=== PATIENT | male | born 1950 | race Caucasian/White ===

== ENCOUNTER 2020-04-27 15:09 | Inpatient (IN) | payer MEDICARE ==
[~2020-04-27] VITALS: Ht 167.6 cm; Wt 63.5 kg
[2020-04-27] MEDS ORDERED: CLONIDINE HCL 0.2 MG TABLET PO ONE (15:30)
[2020-04-27] MEDS ORDERED: AMLO-212 PO (15:44)
[2020-04-27] MEDS ORDERED: CLONIDINE HCL 0.2 MG TABLET ONE (15:59)
--- NOTE | 2020-04-27 16:03 | NUR ---
PT IS INROO #2B. DR CORONA EVALUATED THE PT. NO S/S OF ACUTE DISTARESS AT THIS TIME. PT IS UNDER DIRECT OBSERVATION OF CARSON BOWERS.
--- NOTE | 2020-04-27 17:39 | NUR ---
REPORT WAS GIVEN TO RN M/S. PT WAS TRANSFERED TO ROOM #325.
--- NOTE | 2020-04-27 18:10 | NUR ---
Patient was transported from ER to floor on a gurney. Report received from Steven. Patient is stable, with no sign of distress noted. Patient denies any SI. Belongings list completed. Patient is on isolation for Scabies. Initial vitals taken. Patient has a 1:1 sitter. Safety precautions are in place to promote patient safety. Will endorse to the oncoming nurse.
[2020-04-27 18:30] VITALS: BP 98/58
[2020-04-27] MEDS ORDERED: MAGNESIUM HYDROXIDE 30 ML LIQUID UDC PO PRN (18:45)
[2020-04-27] MEDS ORDERED: ACETAMINOPHEN 325 MG TABLET PO PRN (18:45)
[2020-04-27] MEDS ORDERED: LORAZEPAM 0.5 MG TABLET PO PRN (18:45)
[2020-04-27] MEDS ORDERED: TEMAZEPAM 7.5 MG CAPSULE PO PRN (18:45)
[2020-04-27] MEDS ORDERED: MAG HYDROX/AL HYDROX/SIMETH 30 ML LIQUID UDC PO PRN (18:45)
[2020-04-27 20:00] VITALS: BP 89/49
[2020-04-27] MEDS ORDERED: PERMETHRIN 5% CREAM 60 GM TUBE TP ONE (22:00)
--- NOTE | 2020-04-27 22:11 | NUR ---
Patient alert and oriented x3.On RA in no respiratory distress noted. Unkempt ,depressed, coherent and suicidal.Stated he's homeless and has nothing to live for.Patient has a 1:1 sitter.Patient on contact isolation for scabies.Per patient he received the first tx of elimite for scabies at [facility].Applied 2nd tx of elimite cream from head to toe.Patient compliant and Instructed to wash off the cream after 8-14 hours by showering.
[2020-04-28 04:00] VITALS: BP 129/79
--- NOTE | 2020-04-28 06:37 | NUR ---
Patient slept well through out the shift, 7 hrs slept.No acute distress noted.
--- NOTE | 2020-04-28 07:30 | NUR ---
Received patient resting in bed awake, alert and oriented times 4. No sign of distress noted. Patient denies any SI or KOLB. Patient is on isolation for scabies. Patient also has a 1:1 sitter. Safety precautions are in place. Will continue to monitor.
[2020-04-28 08:17] VITALS: BP 141/72
[2020-04-28] MEDS: AMLODIPINE 5 MG TABLET PO SCH (08:35)
[2020-04-28] MEDS ORDERED: LORAZEPAM 0.5 MG TABLET PO PRN (10:45)
[2020-04-28] MEDS: THIAMINE HCL 100 MG TABLET PO SCH (11:03)
[2020-04-28] MEDS: MULTIVITAMINS,THERAPEUTIC TABLET PO SCH (11:03)
[2020-04-28] MEDS: FLUOXETINE HCL 20 MG CAPSULE PO SCH (17:01)
--- NOTE | 2020-04-28 18:23 | NUR ---
Patient left resting in bed. No sign of distress noted. All medications given as ordered. Patient still on isolation. Patient has a 1:1 sitter. Patient reports no SI and no KOLB. Patient reports being depressed. All safety precautions are in place. Will endorse to oncoming nurse.
[2020-04-28 19:26] VITALS: BP 146/80
[2020-04-28] MEDS: QUETIAPINE FUMARATE 25 MG TABLET PO SCH (20:51)
--- NOTE | 2020-04-29 06:33 | NUR ---
Patient slept 5.15 hrs.Denies SI/HI.No s/s of acute distress noted. Disheveled ,depressed and cooperative.Compliant with medication. Patient has 1:1 sitter.
[2020-04-29 07:04] LABS: BASOPHILS % (AUTO) 1.2 % (0.0-2.0); EOSINOPHILS # (AUTO) 0.4 K/uL (0.0-0.7); EOSINOPHILS % (AUTO) 10.1 % (0.0-7.0); HEMATOCRIT 35.7 % (36.7-47.1); HEMOGLOBIN 12.1 g/dL (12.5-16.3); LYMPHOCYTES % (AUTO) 27.1 % (20.5-51.5); MEAN CORPUSCULAR HEMOGLOBIN 34.4 uug (23.8-33.4); MEAN CORPUSCULAR HGB CONC 34 g/dL (32.5-36.3); MEAN CORPUSCULAR VOLUME 101.8 fL (73.0-96.2); MONOCYTES # (AUTO) 0.8 K/uL (2.0-10.0); MONOCYTES % (AUTO) 21.6 % (0.0-11.0); NEUTROPHILS # (AUTO) 1.5 K/uL (1.8-8.9); PLATELET COUNT (AUTO) 95 K/uL (152-348); RED BLOOD CELL COUNT(AUTO) 3.51 MIL/uL (4.06-5.63); WHITE BLOOD COUNT (AUTO) 3.8 K/uL (3.6-10.2)
[2020-04-29 07:23] LABS: BILIRUBIN,TOTAL 0.4 mg/dL (0.2-1.0); CREATININE 0.9 mg/dL (0.6-1.3); PHOSPHOROUS 3.6 mg/dL (2.5-4.9); TOTAL PROTEIN, SERUM 7.5 g/dL (6.4-8.2)
[2020-04-29 07:24] LABS: THYROID STIMULATING HORMONE 1.65 mIU/mL (0.358-3.740)
[2020-04-29 07:44] VITALS: BP 143/96
--- NOTE | 2020-04-29 07:45 | NUR ---
Received in bed asleep but arousable to stimuli. Denies pain or sob. Breathing non labored. With sitter. Safety precautions in place. Kept comfortable. Call light within reach. Will continue to monitor.
[2020-04-29] MEDS: THIAMINE HCL 100 MG TABLET PO SCH (08:36)
[2020-04-29] MEDS: FLUOXETINE HCL 20 MG CAPSULE PO SCH (08:36)
[2020-04-29] MEDS: AMLODIPINE 5 MG TABLET PO SCH (08:36)
[2020-04-29] MEDS: MULTIVITAMINS,THERAPEUTIC TABLET PO SCH (08:36)
--- NOTE | 2020-04-29 10:27 | NUR ---
Brief Substance Abuse Intervention: Patient was provided with a brief substance abuse intervention for prescription medication overdose and referred to [facility] ([phone]) [facility] ([phone]) [place] [facility] (701-787-3728) [facility] ([phone]) [facility] ([phone]) [facility] National Helpline (141-818-4531).
--- NOTE | 2020-04-29 10:27 | NUR ---
LETICAI Initial Discharge Plan: Patient is currently homeless in [place] and has been homeless for over 9 years. Patient would like to return to [place] and wants to be discharged to "himself". Patient does not want any housing or resources in [facility]. Patient does not want his sister, Alona ([phone]) to be contacted. LETICIA will continue to work with patient and MD to ensure a safe and proper discharge plan.
--- NOTE | 2020-04-29 10:29 | NUR ---
Firearms Report: [employer] Caster completed and submitted a [employer] firearms report for 5150 danger to himself certifications. A copy of report has been placed in patient chart.
[2020-04-29] MEDS ORDERED: MULTIVITAMINS,THERAPEUTIC TABLET PO SCH (10:45)
[2020-04-29] MEDS ORDERED: THIAMINE HCL 100 MG TABLET PO SCH (10:45)
--- NOTE | 2020-04-29 11:19 | NUR ---
James B1 100mg PO medication not given due to duplicate order, was already given this morning.
[2020-04-29] MEDS: FOLIC ACID 1 MG TABLET PO SCH (11:21)
--- NOTE | 2020-04-29 13:00 | NUR ---
Patient in bed watching TV. Noted with good appetite, current diet tolerated. Sitter at bed side. Denies suicidal ideation. Calm and cooperative. Needs attended. Kept comfortable. Call light within reach. Frequent visual checks done. Safety measures in place. Will continue to monitor.
--- NOTE | 2020-04-29 13:04 | NUR ---
LETICIA Individual Intervention: LETICIA met with patient with Dr. Adams and assessed patient's level of suicidality. Patient denies suicidal or homicidal ideation. Patient states he feels ready to leave and does not want to remain in the hospital. Patient stated he wants to go back to [facility]. Patient has been homeless for about 15 years and is very resourceful in the [facility]. Patient is alert and oriented x4 and is able to take are of himself and his ADLs.
[2020-04-29 15:42] VITALS: BP 126/98
--- NOTE | 2020-04-29 19:07 | NUR ---
Alert and oriented, watching TV. Denies sob or pain. Denies suicidal ideation. Patient calm and cooperative. Safety measures in place. Needs attended. Will continue to monitor.
[2020-04-29 20:00] VITALS: BP 144/69
[2020-04-29] MEDS: QUETIAPINE FUMARATE 25 MG TABLET PO SCH (20:24)
[2020-04-29 20:37] LABS: EOSINOPHILS % (MANUAL) 2 % (0-8); LYMPHOCYTES % (MANUAL) 32 % (20-40); MONOCYTES % (MANUAL) 6 % (2-10); NEUTROPHILS % (MANUAL) 60 % (42-75)
--- NOTE | 2020-04-29 21:47 | NUR ---
Received patient in bed AAOx4. Patient is calm and pleasant, able to engage in meaningful conversation. Patient is goal oriented to get back to [facility] for their court date. Denies SI and HI and contracted for safety during hospitalization. 1:1 sitter at bedside for safety. Safety measures in place.
[2020-04-30 04:41] VITALS: BP 130/72
--- NOTE | 2020-04-30 06:30 | NUR ---
Patient slept 6.75 hours. Compliant with medication and patient care. 1:1 sitter at bedside for safety. Denies SI and HI.
--- NOTE | 2020-04-30 08:03 | NUR ---
LETICIA Discharge Note: Patient is choosing to be discharged to himself back to [facility]. LETICIA spoke with Alcira from [facility] ([phone]) who is arranging transportation for the patient today at 12:45PM ([employer] industrial truck driver). Patient has no family or supportive contacts. Patient is alert and oriented x4. Patient is independent and has been homeless for over 15 years. Patient is able to take care of his ADLs. Patient denies suicidal or homicidal ideation. Patient presents with euthymic mood and congruent affect. Patient is referred to [facility] ([phone]) for mental health treatment and psych follow up. Patient was provided with a brief substance abuse intervention for prescription medication overdose and referred to [facility] ([phone]), [facility] ([phone]), National Suicide Prevention Lifeline (130-518-0588), [facility] ([phone]), [facility] ([phone]) [facility] Helpline ([phone]). Addendum: 04/30/20 at 0805 by ANTONY BROWN Homeless resources were provided and include [address] information line for shelters and homeless resources. A copy of all resources given to patient was also placed in the chart. Patient signed the homeless waiver form and a copy has been placed in the chart.
[2020-04-30] MEDS: THIAMINE HCL 100 MG TABLET PO SCH (08:04)
[2020-04-30] MEDS: FOLIC ACID 1 MG TABLET PO SCH (08:04)
[2020-04-30] MEDS: MULTIVITAMINS,THERAPEUTIC TABLET PO SCH (08:04)
[2020-04-30] MEDS: AMLODIPINE 5 MG TABLET PO SCH (08:05)
[2020-04-30] MEDS: FLUOXETINE HCL 20 MG CAPSULE PO SCH (08:05)
[2020-04-30 08:13] VITALS: BP 137/53
--- NOTE | 2020-04-30 12:00 | NUR ---
dc orders received noted and carried out,dc instruction given to the pt pt said he will follow up with his dr .pt left the facility via private car in stable condition in proper clothing
== END 2020-04-30 12:10 | disposition left against medical advice (07) | DRG 885 ==
LOC: ER 15:09 → GPSOV3 17:06
PROVIDERS: ADMIT Psychiatry & Neurology Psychiatry; ATTEND Nurse Practitioner Acute Care
DX: F33.3 Major depressive disorder, recurrent, severe with psychotic symptoms (principal); N17.0 Acute kidney failure with tubular necrosis; E44.0 Moderate protein-calorie malnutrition; E87.1 Hypo-osmolality and hyponatremia; F23 Brief psychotic disorder; F15.13 Other stimulant abuse with withdrawal; F10.239 Alcohol dependence with withdrawal, unspecified; Z59.0 Homelessness; B86 Scabies; E11.9 Type 2 diabetes mellitus without complications; D64.9 Anemia, unspecified; E88.09 Other disorders of plasma-protein metabolism, not elsewhere classified; I10 Essential (primary) hypertension; E86.1 Hypovolemia; R74.01 Elevation of levels of liver transaminase levels; Z68.22 Body mass index [BMI] 22.0-22.9, adult
CPT/HCPCS: 36415; 70030-TC; 83735; 84100; 84443; 85025; A4663